=== PATIENT | female | born 1945 | race Caucasian/White ===

== ENCOUNTER → 2016-06-03 | Outpatient (CLI) | payer OTHER ==
[2014-12-12 12:36] VITALS: BP 138/82
--- NOTE | 2016-06-03 10:24 | RAD ---
HISTORY: Chronic low back pain with no known trauma Study: Five views of the lumbar spine Comparison: None Findings: Images demonstrate 5 non rib-bearing lumbar vertebral bodies. The lumbar vertebral body heights are relatively maintained. There is dextro curvature of the lumbar spine which in part may be accentuate d by patient position. Lumbar vertebral body heights are relatively maintained. No evidence of acute displaced fracture is identified. Degenerative facet changes are seen throughout the lumbar spine. Multilevel osteophytosis is also noted. Atherosclerotic changes are seen within the visualized aorta . IMPRESSION: 1. Degenerative changes as noted above. Reported By:
== END ==
LOC: RAD 08:54
PROVIDERS: ATTEND Nurse Practitioner Family
DX: M54.5 Low back pain (principal)
CPT/HCPCS: 72110